=== PATIENT | male | born 1970 | race Caucasian/White ===

== ENCOUNTER 2021-01-28 09:45 | Emergency (ER) | payer SELFPAY ==
[2021-01-28 09:52] VITALS: TEMP 97; BMI 30.8
[2021-01-28] MEDS ORDERED: ASPIRIN 81 MG CHEWABLE TABLETS PO ONE (10:19)
[2021-01-28 11:15] LABS: BASO % 0.3 % (0-2.0); EOS % 2.2 % (0-4.5); HEMATOCRIT 45.4 % (35.4-49); HEMOGLOBIN 15.9 GM/dL (11.7-16.9); LYMPH % 15.7 % (8-40); MCH 32.4 pg (25.7-33.7); MCHC 35.1 g/dl (32.0-35.9); MEAN CELL VOLUME 92.3 fl (80-96); MEAN PLT VOLUME 6.7 fl (7.5-11.1); MONO % 6.4 % (3.8-10.2); NEUT % 75.4 % (42.8-82.8); PLATELET COUNT 245 10^3/uL (134-434); RBC 4.92 M/mm3 (4.00-5.60); RDW 13.6 % (11.9-15.9); WHITE BLOOD COUNT 7.7 K/mm3 (4.0-10.0)
[2021-01-28] MEDS ORDERED: ASPIRIN 325 MG ENTERIC COATED TABLET (FP) ONE (11:19)
[2021-01-28 11:22] LABS: INR 1.01 (0.83-1.09); PROTHROMBIN TIME (PATIENT) 12.2 SEC (9.7-13.0)
[2021-01-28 11:24] LABS: ACTIVATED PTT 31.3 SECONDS (25.2-36.5)
[2021-01-28 11:26] VITALS: BP 150/90; PULSE 88
[2021-01-28 11:37] LABS: CHLORIDE 108 mmol/L (98-107); SODIUM 143 mmol/L (136-145)
[2021-01-28 11:38] LABS: ALBUMIN 3.9 g/dl (3.4-5.0); ANION GAP 9 MMOL/L (8-16); BLOOD UREA NITROGEN 13.2 mg/dL (7-18); CO2 27 mmol/L (21-32); LIPASE 74 U/L (73-393); MAGNESIUM 2.2 mg/dL (1.8-2.4)
[2021-01-28 11:40] LABS: GLUCOSE,RANDOM 127 mg/dL (74-106)
[2021-01-28 11:41] LABS: CREATININE 1.2 mg/dL (0.55-1.3); SGOT/AST 28 U/L (15-37); SGPT/ALT 44 U/L (13-61)
[2021-01-28 11:43] LABS: BILIRUBIN,TOTAL 0.4 mg/dL (0.2-1); TOT PROT 7.3 g/dl (6.4-8.2)
[2021-01-28 11:45] LABS: ALK PHOS 115 U/L (45-117)
== END 2021-01-28 13:30 | disposition left against medical advice (07) ==
LOC: JER 09:45
DX: R07.9 Chest pain, unspecified (principal); Z00.00 Encounter for general adult medical examination without abnormal findings
CPT/HCPCS: 36415; 71046-TC-FY; 80053; 82550; 82553; 83690; 83735; 84484; 85025; 85610; 85730; 93005; 93010; 99284-25

== ENCOUNTER 2021-06-09 18:46 | Emergency (ER) | payer OTHER ==
[2021-06-09 19:02] VITALS: BP 154/84; PULSE 95; TEMP 98.8; BMI 35.5
[2021-06-09] MEDS ORDERED: ACETAMINOPHEN 1000 MG/100 ML VIAL IVPB ONE (20:10)
[2021-06-09] MEDS ORDERED: LACTATED RINGERS SOLUTION 1000 ML INFUS.BAG IV ONE (20:10)
[2021-06-09] MEDS ORDERED: ACETAMINOPHEN INJECTION 100 ML IVPB ONE (21:11)
[2021-06-09 21:34] LABS: BASO % 0.1 % (0-2.0); EOS % 1.7 % (0-4.5); HEMATOCRIT 43.5 % (35.4-49); HEMOGLOBIN 15.2 GM/dL (11.7-16.9); LYMPH % 17.4 % (8-40); MCH 31.8 pg (25.7-33.7); MEAN CELL VOLUME 91.1 fl (80-96); MEAN PLT VOLUME 6.9 fl (7.5-11.1); MONO % 4.7 % (3.8-10.2); NEUT % 76.1 % (42.8-82.8); PLATELET COUNT 275 10^3/uL (134-434); RBC 4.78 M/mm3 (4.00-5.60); RDW 13.1 % (11.9-15.9); WHITE BLOOD COUNT 8.3 K/mm3 (4.0-10.0)
[2021-06-09 21:51] LABS: CHLORIDE 110 mmol/L (98-107); SODIUM 143 mmol/L (136-145)
[2021-06-09 21:53] LABS: ALBUMIN 3.7 g/dl (3.4-5.0); ANION GAP 10 MMOL/L (8-16); BLOOD UREA NITROGEN 17.2 mg/dL (7-18); CALCIUM 8.1 mg/dL (8.5-10.1); CO2 23 mmol/L (21-32); GLUCOSE,RANDOM 111 mg/dL (74-106)
[2021-06-09 21:57] LABS: SGOT/AST 27 U/L (15-37)
[2021-06-09 21:58] LABS: BILIRUBIN,TOTAL 0.3 mg/dL (0.2-1); TOT PROT 7.4 g/dl (6.4-8.2)
[2021-06-09 21:59] LABS: ALK PHOS 126 U/L (45-117)
[2021-06-09 22:27] LABS: SGPT/ALT 48 U/L (13-61)
== END 2021-06-10 00:36 | disposition home or self-care (01) ==
LOC: JER 18:46
PROC: 3E033GC Introduction of Other Therapeutic Substance into Peripheral Vein, Percutaneous Approach (ICD-10-PCS; principal; 2021-06-09)
DX: R07.9 Chest pain, unspecified (principal)
CPT/HCPCS: 36415; 71046-TC-FY; 71275-TC; 80053; 82550; 82553; 84484; 85025; 93005; 93010; 99285-25; C9803; J0131; Q9967; U0003; U0005

== ENCOUNTER 2021-07-23 09:10 | Emergency (ER) | payer OTHER ==
[2021-07-23 09:23] VITALS: BMI 40.6
[2021-07-23 12:20] LABS: BASO % 0.1 % (0-2.0); EOS % 1.5 % (0-4.5); HEMATOCRIT 47.9 % (35.4-49); LYMPH % 20.3 % (8-40); MCHC 33.3 g/dl (32.0-35.9); MEAN CELL VOLUME 93.1 fl (80-96); MONO % 4.2 % (3.8-10.2); NEUT % 73.9 % (42.8-82.8); PLATELET COUNT 287 10^3/uL (134-434); RBC 5.15 M/mm3 (4.00-5.60); RDW 13.4 % (11.9-15.9); WHITE BLOOD COUNT 7.7 K/mm3 (4.0-10.0)
[2021-07-23 12:35] LABS: CHLORIDE 109 mmol/L (98-107); SODIUM 142 mmol/L (136-145)
[2021-07-23 12:37] LABS: ALBUMIN 4.2 g/dl (3.4-5.0); ANION GAP 7 MMOL/L (8-16); BLOOD UREA NITROGEN 11.3 mg/dL (7-18); CALCIUM 8.7 mg/dL (8.5-10.1); CO2 26 mmol/L (21-32)
[2021-07-23 12:38] LABS: GLUCOSE,RANDOM 93 mg/dL (74-106)
[2021-07-23 12:40] LABS: CREATININE 0.8 mg/dL (0.55-1.3); SGOT/AST 23 U/L (15-37)
[2021-07-23 12:41] LABS: SGPT/ALT 38 U/L (13-61)
[2021-07-23 12:42] LABS: BILIRUBIN,TOTAL 0.4 mg/dL (0.2-1); TOT PROT 7.8 g/dl (6.4-8.2)
[2021-07-23 12:43] LABS: ALK PHOS 116 U/L (45-117)
[2021-07-23 15:49] VITALS: TEMP 97.8
[2021-07-23 16:31] VITALS: BP 156/98; PULSE 87
== END 2021-07-23 16:30 | disposition home or self-care (01) ==
LOC: JER 09:10
DX: R07.9 Chest pain, unspecified (principal)
CPT/HCPCS: 36415; 71046-TC-FY; 80053; 82550; 82553; 84484; 85025; 93005; 93010; 99285-25; C9803; U0003; U0005

== ENCOUNTER → 2021-12-16 | Emergency (ER) | payer OTHER ==
[2021-12-16 17:53] VITALS: BP 136/81; PULSE 83; TEMP 98; BMI 35.5
== END ==
LOC: JER 17:48
DX: R20.2 Paresthesia of skin (principal)
CPT/HCPCS: 93005; 93010; 99281-25